=== PATIENT | female | born 1975 | race Caucasian/White ===

== ENCOUNTER 2023-03-21 19:13 | Emergency (ER) | payer BC, OTHER ==
[2023-03-21] MEDS ORDERED: Ketorolac 30 MG/ML SDV IVPUSH ONE (19:34)
[2023-03-21] MEDS ORDERED: Sodium Chloride 0.9% 1,000 ML IV SCH (19:45)
[2023-03-21 19:47] LABS: BASOPHILS ABSOLUTE AUTO 0.04 K/uL (0.00-0.10); BASOPHILS PERCENT AUTO 0.7 % (0.1-1.3); EOSINOPHILS ABSOLUTE AUTO 0.06 K/uL (0.00-0.40); HEMATOCRIT 32.7 % (34.3-46.0); HEMOGLOBIN 10.3 g/dL (11.2-15.5); IMMATURE GRAN PERCENT AUTO 0.2 % (0.0-0.7); LYMPHOCYTES ABSOLUTE AUTO 1.38 K/uL (0.8-3.3); LYMPHOCYTES PERCENT AUTO 22.5 % (11.4-47.7); MEAN CORPUSCULAR HEMOGLOBIN 25.5 pg (31.6-35.5); MEAN CORPUSCULAR HGB CONC 31.5 g/dL (31.6-35.5); MEAN CORPUSCULAR VOLUME 80.9 fL (81.4-99.0); MONOCYTES ABSOLUTE AUTO 0.65 K/uL (0.20-0.90); MONOCYTES PERCENT AUTO 10.6 % (3.3-12.6); PLATELET COUNT,PLT 223 K/uL (130-375); RED BLOOD CELL COUNT 4.04 M/uL (3.77-5.24); WHITE BLOOD CELL COUNT,WBC 6.1 K/uL (3.2-11.0)
[2023-03-21] MEDS: Sodium Chloride 0.9% 10 ML Syringe FLUSH ONE ×2 (19:51→20:14)
[2023-03-21 19:52] LABS: IMMATURE GRAN ABSOLUTE AUTO 0.01 K/uL (0.00-0.23)
[2023-03-21] MEDS ORDERED: Iopamidol 612 MG/ML 100 ML Bottle IV SCH ×2 (20:00→22:30)
[2023-03-21] MEDS ORDERED: Sodium Chloride 0.9% 80 ML IV SCH ×2 (20:00→22:30)
[2023-03-21 20:03] LABS: CALCIUM 8.3 mg/dL (8.5-10.1); CREATININE 0.7 mg/dL (0.6-1.0); EST CRCL DRUG DOSING (CG) 69.83 mL/min; POTASSIUM,K 3.1 mmol/L (3.6-5.2)
[2023-03-21 20:07] LABS: ANION GAP 13.1 mmol/L (5.0-14.0)
[2023-03-21] MEDS ORDERED: HYDROmorphone 1 MG/ML Syringe IVPUSH ONE ×2 (20:10→21:07)
[2023-03-21] MEDS ORDERED: tiZANidine 2 MG Tab PO STA (22:08)
[2023-03-21 22:22] LABS: INFLUENZA A NAA NEGATIVE (NEGATIVE); INFLUENZA B NAA NEGATIVE (NEGATIVE); RESPIRATORY SYNCYTIAL VIR NAA NEGATIVE (NEGATIVE)
[2023-03-21 22:24] LABS: CORONAVIRUS COVID-19 NAA POSITIVE (NEGATIVE)
[2023-03-21] MEDS ORDERED: Sodium Chloride 0.9% 10 ML Syringe FLUSH ONE (22:26)
[2023-03-21] MEDS ORDERED: Melatonin 3 MG Tab PO PRN (22:47)
[2023-03-21] MEDS ORDERED: HYDROmorphone 0.5 MG/0.5 ML Syringe IVPUSH PRN (22:47)
[2023-03-21] MEDS ORDERED: Enoxaparin 40 MG/0.4 ML Syringe SUBCUT SCH (22:47)
[2023-03-21] MEDS ORDERED: Ondansetron 4 MG Tab.DIS PO PRN (22:47)
[2023-03-21] MEDS ORDERED: Magnesium Hydroxide 400 MG/5 ML Susp 30 ML Cup PO PRN (22:47)
[2023-03-21] MEDS ORDERED: Potassium Chloride 20 MEQ Tab.ER PO ONE (22:47)
[2023-03-21] MEDS ORDERED: Sodium Chloride 0.9% 1,000 ML IV ONE (22:47)
[2023-03-21] MEDS ORDERED: Acetaminophen 325 MG Tab PO PRN (22:47)
[2023-03-21] MEDS ORDERED: Naloxone 0.4 MG/ML SDV IVPUSH PRN (22:47)
[2023-03-21] MEDS ORDERED: Sennosides/Docusate Sodium 50-8.6 MG Tab PO PRN (22:47)
[2023-03-21] MEDS ORDERED: Ondansetron 4 MG/2 ML SDV IV PRN (22:47)
[2023-03-21] MEDS: Docusate Sodium 100 MG Cap PO SCH (23:14)
[2023-03-21] MEDS: busPIRone 5 MG Tab PO SCH (23:14)
[2023-03-21] MEDS: Gabapentin 300 MG Cap PO SCH (23:15)
[2023-03-21 23:33] LABS: APPEARANCE,URINE CLEAR (CLEAR); BILIRUBIN,URINE NEGATIVE (NEGATIVE); COLOR,URINE YELLOW (YELLOW); GLUCOSE,URINE NEGATIVE (NEGATIVE); KETONES,URINE NEGATIVE (NEGATIVE); LEUKOCYTE ESTERASE,URINE NEGATIVE (NEGATIVE); NITRITE,URINE NEGATIVE (NEGATIVE); OCCULT BLOOD,URINE NEGATIVE (NEGATIVE); PH,URINE 5.5 (5.0-8.0); PROTEIN,URINE NEGATIVE (NEGATIVE); UROBILINOGEN,URINE 0.2 EU/dL (0.2-1.0)
[2023-03-21] MEDS ORDERED: tiZANidine 2 MG Tab PO PRN (23:37)
[2023-03-22 00:12] LABS: RBC,URINE 0-5 (0-5); WBC,URINE 0-5 (0-5)
[2023-03-22 00:13] LABS: AMORPHOUS SEDIMENT,URINE NOT SEEN; BACTERIA,URINE RARE; EPITHELIAL CELLS,URINE RARE; MUCUS,URINE NOT SEEN
[2023-03-22] MEDS: oxyCODONE 5 MG Tab PO PRN ×2 (02:58→09:11)
[2023-03-22 05:38] LABS: HEMATOCRIT 29.3 % (34.3-46.0); HEMOGLOBIN 9.1 g/dL (11.2-15.5); MEAN CORPUSCULAR HEMOGLOBIN 25.3 pg (31.6-35.5); MEAN CORPUSCULAR HGB CONC 31.1 g/dL (31.6-35.5); MEAN CORPUSCULAR VOLUME 81.6 fL (81.4-99.0); RED BLOOD CELL COUNT 3.59 M/uL (3.77-5.24); WHITE BLOOD CELL COUNT,WBC 5.4 K/uL (3.2-11.0)
[2023-03-22 05:51] LABS: CALCIUM 7.5 mg/dL (8.5-10.1); CREATININE 0.5 mg/dL (0.6-1.0); EST CRCL DRUG DOSING (CG) 97.76 mL/min; MAGNESIUM 1.8 mg/dL (1.8-2.4); POTASSIUM,K 3.7 mmol/L (3.6-5.2)
[2023-03-22 05:59] LABS: ANION GAP 8.7 mmol/L (5.0-14.0)
[2023-03-22] MEDS: Gabapentin 300 MG Cap PO SCH (08:25)
[2023-03-22] MEDS: busPIRone 5 MG Tab PO SCH (08:25)
[2023-03-22] MEDS: Docusate Sodium 100 MG Cap PO SCH (08:26)
[2023-03-22] MEDS ORDERED: Losartan 25 MG Tab PO SCH (09:00)
[2023-03-22] MEDS ORDERED: Escitalopram 10 MG Tab PO SCH ×2 (09:00)
[2023-03-22] MEDS ORDERED: Losartan 50 MG Tab PO ONE (10:30)
[2023-03-22] MEDS ORDERED: Hydrochlorothiazide 12.5 MG Cap PO ONE (10:30)
== END 2023-03-22 11:26 | disposition home or self-care (01) ==
LOC: JP.ED 19:13 → JP.MS 22:07
PROVIDERS: ADMIT Registered Nurse; ATTEND Hospitalist
DX: S22.42XA Multiple fractures of ribs, left side, initial encounter for closed fracture (principal); W00.0XXA Fall on same level due to ice and snow, initial encounter
CPT/HCPCS: 0241U; 36415; 71260; 74177; 80048; 81001; 83735; 85025; 85027; 96361; 96372; 96374; 96375; 96376; 99222; 99238; 99285; A9270; G0378; J1170; J1650; J1885; J3490; J7030; Q9967